=== PATIENT | female | born 1970 ===

== ENCOUNTER 2021-11-28 14:19 | Emergency (ER) | payer OTHER ==
[~2021-11-28] VITALS: Ht 162.6 cm; Wt 95.3 kg
[2021-11-28 15:55] LABS: BASOPHILS % (AUTO) 0.2 % (0.0-5.0); EOSINOPHILS % (AUTO) 0.5 % (0.0-8.0); HEMATOCRIT 35.4 % (36-48); LYMPHOCYTES % (AUTO) 11.1 % (21.0-51.0); MEAN CORPUSCULAR HEMOGLOBIN 28.9 pg (27.0-33.0); MEAN CORPUSCULAR HGB CONC 33.3 g/dL (32.0-36.0); MEAN CORPUSCULAR VOLUME 86.8 fL (79-99); MONOCYTES % (AUTO) 11.6 % (3.0-13.0); NEUTROPHILS % (AUTO) 76.2 % (40.0-77.0); PLATELET COUNT (AUTO) 290 K/uL (130-400); RED BLOOD CELL COUNT(AUTO) 4.08 MIL/uL (4.00-5.50); RED CELL DISTRIBUTION WIDTH 14.4 % (11.0-15.5); WHITE BLOOD COUNT (AUTO) 13.8 K/uL (4.8-10.8)
[2021-11-28 16:12] LABS: CREATININE 1.3 mg/dL (0.5-1.5); POTASSIUM 3.8 mmol/L (3.5-5.1)
[2021-11-28 16:19] LABS: ALBUMIN 3.4 g/dL (3.5-5.0); TOTAL PROTEIN, SERUM 7.5 g/dL (6.0-8.3)
[2021-11-28 16:41] LABS: B-TYPE NATRIURETIC PEPTIDE 17 pg/mL (0-100)
[2021-11-28] MEDS ORDERED: OSEL75 PO (16:55)
[2021-11-28 17:03] VITALS: BP 114/62
== END 2021-11-28 17:12 | disposition home or self-care (01) ==
LOC: EDH 14:19
DX: J10.1 Influenza due to other identified influenza virus with other respiratory manifestations (principal); F41.9 Anxiety disorder, unspecified; Z20.822 Contact with and (suspected) exposure to COVID-19; F32.A Depression, unspecified; M06.9 Rheumatoid arthritis, unspecified; Z90.49 Acquired absence of other specified parts of digestive tract; Z98.890 Other specified postprocedural states
CPT/HCPCS: 99285; 71045; 87635; 84484; 80053; 83880; 85025; 87804 ×2; 36415; 93005; C9803

== ENCOUNTER 2021-12-11 10:28 | Emergency (ER) | payer OTHER ==
[~2021-12-11] VITALS: Ht 162.6 cm; Wt 92.5 kg
[~2021-12-11 10:28] MED LIST: OSEL75 PO
[2021-12-11 10:58] LABS: BASOPHILS % (AUTO) 0.2 % (0.0-5.0); EOSINOPHILS % (AUTO) 1.5 % (0.0-8.0); HEMATOCRIT 37.1 % (36-48); LYMPHOCYTES % (AUTO) 16.5 % (21.0-51.0); MEAN CORPUSCULAR HEMOGLOBIN 28.5 pg (27.0-33.0); MEAN CORPUSCULAR HGB CONC 32.3 g/dL (32.0-36.0); MEAN CORPUSCULAR VOLUME 88.1 fL (79-99); MONOCYTES % (AUTO) 7.1 % (3.0-13.0); NEUTROPHILS % (AUTO) 74.1 % (40.0-77.0); PLATELET COUNT (AUTO) 477 K/uL (130-400); RED BLOOD CELL COUNT(AUTO) 4.21 MIL/uL (4.00-5.50); RED CELL DISTRIBUTION WIDTH 14.2 % (11.0-15.5); WHITE BLOOD COUNT (AUTO) 10.2 K/uL (4.8-10.8)
[2021-12-11 11:10] LABS: CREATININE 0.8 mg/dL (0.5-1.5); POTASSIUM 4.1 mmol/L (3.5-5.1)
[2021-12-11 11:14] LABS: TOTAL PROTEIN, SERUM 7.5 g/dL (6.0-8.3)
[2021-12-11] MEDS ORDERED: 0.9%NACL 1000ML 1,000 ML IV ONE (12:00)
[2021-12-11] MEDS ORDERED: ONDANSETRON 4MG INJ IVP ONE (12:00)
[2021-12-11] MEDS ORDERED: CEFTRIAXONE 1G VIAL IVP ONE (12:00)
[2021-12-11] MEDS ORDERED: FAMOTIDINE 20MG VIAL IV ONE (12:00)
[2021-12-11] MEDS ORDERED: BENZ-39 PO (12:00)
[2021-12-11] MEDS ORDERED: AMOX1TAB16 PO (12:00)
[2021-12-11 13:19] VITALS: BP 118/70
== END 2021-12-11 13:31 | disposition home or self-care (01) ==
LOC: EDH 10:28
DX: J18.9 Pneumonia, unspecified organism (principal); Z90.49 Acquired absence of other specified parts of digestive tract; Z98.84 Bariatric surgery status; Z86.16 Personal history of COVID-19
CPT/HCPCS: 99284; 96374; 71045; 96375; 96361; 80053; 85025; 36415; J3490; J7030; J0696; J2405

== ENCOUNTER 2021-12-14 15:37 | Emergency (ER) | payer OTHER ==
[~2021-12-14] VITALS: Ht 162.6 cm; Wt 93.4 kg
[~2021-12-14 15:37] MED LIST changes: +AMOX1TAB16 PO; +BENZ-39 PO
[2021-12-14 17:21] LABS: APPEARANCE,URINE CLEAR (CLEAR); BILIRUBIN,URINE NEGATIVE (NEGATIVE); COLOR,URINE LIGHT-YELLOW (YELLOW); GLUCOSE, URINE (UA) NEGATIVE (NEGATIVE); KETONES,URINE NEGATIVE (NEGATIVE); LEUKOCYTE ESTERASE ,URINE NEGATIVE Leu/uL (NEGATIVE); NITRATE,URINE NEGATIVE (NEGATIVE); OCCULT BLOOD,URINE LARGE (NEGATIVE); PROTEIN,URINE NEGATIVE (NEGATIVE); UROBILINOGEN,URINE 0.2 mg/dL (0.2-1.0)
[2021-12-14 17:29] LABS: BACTERIA,URINE RARE /HPF (None Seen); MUCUS,URINE RARE LPF (None Seen); RBC,URINE 26-50 /HPF (0-1); SQUAMOUS EPITHELIAL CELL,UR RARE /HPF (0-2)
[2021-12-14 17:45] LABS: BASOPHILS % (AUTO) 0.4 % (0.0-5.0); EOSINOPHILS % (AUTO) 2.1 % (0.0-8.0); HEMATOCRIT 35.2 % (36-48); LYMPHOCYTES % (AUTO) 26.3 % (21.0-51.0); MEAN CORPUSCULAR HEMOGLOBIN 28.4 pg (27.0-33.0); MEAN CORPUSCULAR VOLUME 86.3 fL (79-99); MONOCYTES % (AUTO) 7.6 % (3.0-13.0); NEUTROPHILS % (AUTO) 63.2 % (40.0-77.0); PLATELET COUNT (AUTO) 481 K/uL (130-400); RED BLOOD CELL COUNT(AUTO) 4.08 MIL/uL (4.00-5.50); RED CELL DISTRIBUTION WIDTH 14.1 % (11.0-15.5); WHITE BLOOD COUNT (AUTO) 7.8 K/uL (4.8-10.8)
[2021-12-14 17:57] LABS: ALBUMIN 2.9 g/dL (3.5-5.0); CREATININE 0.8 mg/dL (0.5-1.5); POTASSIUM 3.7 mmol/L (3.5-5.1); TOTAL PROTEIN, SERUM 7.1 g/dL (6.0-8.3)
[2021-12-14] MEDS ORDERED: IOHEXOL 350 MG/ML 100ML INFUS..BTL IV ONE (20:17)
[2021-12-14 22:01] VITALS: BP 126/74
[2021-12-14] MEDS ORDERED: BUDE1AMP2 IH (22:08)
[2021-12-14] MEDS ORDERED: BENZ200C53 PO (22:08)
[2021-12-14] MEDS ORDERED: IPRA3AMP24 IH (22:08)
== END 2021-12-14 22:08 | disposition home or self-care (01) ==
LOC: EDH 15:37
DX: J18.9 Pneumonia, unspecified organism (principal); Z20.822 Contact with and (suspected) exposure to COVID-19; Z79.899 Other long term (current) drug therapy; Z98.890 Other specified postprocedural states
CPT/HCPCS: 99285; 71270; 71045; 87635; 80053; 85025; 85378; 87880; 87804 ×2; 81001; 36415; C9803; Q9967